=== PATIENT | male | born 1995 | race Asian ===

== ENCOUNTER 2018-04-17 04:35 | Emergency (ER) | payer OTHER ==
[~2018-04-17] VITALS: Ht 185.4 cm; Wt 90.7 kg
[2018-04-17 04:35] VITALS: BP_SYST 126
--- NOTE | 2018-04-17 04:35 | NUR ---
Patient to [address] to gown for evaluation. Side rails up.
--- NOTE | 2018-04-17 04:45 | NUR ---
ER at bedside examining patient.
--- NOTE | 2018-04-17 05:07 | NUR ---
Written and verbal consent obtained from patient for blood alcohol, name and verified by patient. Disinfected patient's skin with IODINE that did not contain alcohol or other volatile organic compound. Collected the blood from the subject named by venipuncture, in the presence of Officer VENUS. Used a sterile, dry hypodermic needle and dry vacuum blood collection. Two dry vacuum blood collection was supplied by the officer named above. Withdrew a specimen of blood from RT AC of the subject named above. Inverted both blood tube several times to ensure that the preservative and anticoagulant were thoroughly mixed in the blood specimen. I initialed both blood tube label for identification. The labeled blood tubes was handed directly to the Officer named above. The blood tubes stopper remained in place while I had possession of the blood tubes. The Officer placed tubes into envelope and sealed it in my presence. Envelope initialed by myself and Officer named above. Patient tolerated well, bandage applied, and bleeding controlled.
--- NOTE | 2018-04-17 05:10 | NUR ---
Patient given written and verbal discharge instructions and verbalizes understanding. ER MD discussed with patient the results and treatment provided. Patient in stable condition. ID arm band removed. Patient educated on pain management and to follow up with PMD. Pain Scale 0/10. Opportunity for questions provided and answered. Medication side effect fact sheet provided.
[2018-04-17 05:29] VITALS: BP_SYST 120
== END 2018-04-17 05:10 ==
LOC: SED 04:35
DX: F10.129 Alcohol abuse with intoxication, unspecified (principal); F17.200 Nicotine dependence, unspecified, uncomplicated; V43.52XA Car driver injured in collision with other type car in traffic accident, initial encounter; Y93.89 Activity, other specified; Y92.410 Unspecified street and highway as the place of occurrence of the external cause; Y99.8 Other external cause status
CPT/HCPCS: 99283